=== PATIENT | male | born 1980 | race Caucasian/White ===

== ENCOUNTER 2018-08-20 10:21 | Outpatient (CLI) | payer OTHER ==
--- NOTE | 2018-08-20 13:26 | XRAY Report ---
Reason: KNEE JOINT PAIN,RIGHT Procedure Date: 08/20/2018 Accession Number: [id number] / [id number] Procedure: XR - Knee 3 View RT CPT Code: FULL RESULT: EXAM: RIGHT KNEE RADIOGRAPHY EXAM DATE: 08/20/2018 10:43 AM. CLINICAL HISTORY: KNEE JOINT PAIN,RIGHT. COMPARISON: None. TECHNIQUE: 3 views. FINDINGS: Bones: Normal. No fractures or bone lesions. Joints: There is a small joint effusion. No subluxation. No significant degenerative changes. Soft Tissues: Normal. No soft tissue swelling. IMPRESSION: Small joint effusion without significant degenerative changes or fracture/dislocation detected. [facility]
== END 2018-08-20 10:22 | disposition home or self-care (01) ==
LOC: DI 10:21
PROVIDERS: ATTEND Family Medicine
DX: M25.461 Effusion, right knee (principal)